=== PATIENT | female | born 1970 | race Two or more races ===

== ENCOUNTER 2022-08-02 12:31 | Emergency (ER) | payer BC ==
[~2022-08-02] VITALS: Ht 157.5 cm; Wt 72.6 kg
[2022-08-02] MEDS ORDERED: FLUTICASONE-SA1 EAC4 IH (13:14)
[2022-08-02] MEDS ORDERED: PAXLOVID 300-11 EACH PO (14:57)
[2022-08-02] MEDS ORDERED: TUSNEL LIQUID178 ML PO (15:00)
[2022-08-02] MEDS ORDERED: ALBUTEROL2.5 MG/3 M IH (15:00)
== END 2022-08-02 15:15 | disposition home or self-care (01) ==
LOC: ER 12:31
DX: U07.1 COVID-19 (principal); J45.901 Unspecified asthma with (acute) exacerbation; Z20.822 Contact with and (suspected) exposure to COVID-19